=== PATIENT | female | born 1965 | race Caucasian/White ===

== ENCOUNTER → 2016-06-19 | Outpatient (CLI) | payer BC ==
[~2016-06-19] MED LIST: ACET-1311 PO; ATV/1 PO; CALC1TAB9 PO; CYAN10005 PO; DIPH-437 PO; IBUP-1050 PO; LISI-461 PO; METO25TA56 PO; NITR1CAP16 PO; OPTIRAY 320 IV PRN; OXYC-57 PO; PHEN-775 PO; VITAMIN B12 PO
--- NOTE | 2016-06-19 08:24 | DIAGNOSTIC IMAGING REPORT ---
CT ABD/PELVIS IV CONTRAST ONLY CLINICAL HISTORY: Bladder mass COMPARISON STUDY: 02/04/2014 TECHNIQUE: Following the IV administration of 92 mL of Optiray-320, CT scan of the abdomen and pelvis was performed from the lung bases to the proximal femurs. Images are reviewed in the axial, sagittal, and coronal planes. IV contrast was administered without complication. CT DOSE: 293.69 mGycm FINDINGS: Lower chest: The heart is normal in size and configuration, without pericardial effusion. The lung bases and pleural spaces are clear. Liver: There is a 4 mm hypodensity within the left hepatic lobe anteriorly, likely representing a cyst. Gallbladder: Unremarkable. Spleen: Enlarged measuring 14.5 cm Pancreas: Unremarkable. Adrenal glands: Unremarkable. Kidneys: There are bilateral nonobstructing intrarenal calculi. No solid renal masses are visualized Bowel: Evaluation of bowel is limited given the positive intra-abdominal fat and the lack of orally administered contrast. There are no transition zones indicate bowel obstruction. Peritoneum: There is free intraperitoneal air, slightly greater than expected for the last surgery which is performed 06/08/2016. There is a small amount of ascites, also possibly postsurgical Vasculature: The abdominal aorta is normal in course and caliber. Adenopathy: There are bilateral iliac/pelvic sidewall lymph nodes which are at the upper limits of normal in size. Pelvic viscera: There is mild bladder wall thickening. The uterus appears surgically absent. Skeletal structures: No destructive osseous lesions are seen. IMPRESSION: 1. Moderate free intraperitoneal air. This is more than is typical for surgery performed 06/08/2016. Clinical correlation is advocated 2. Splenomegaly 3. No evidence of bowel obstruction 4. Small amount of free pelvic fluid 5. Surgically absent uterus 6. Mild bladder wall thickening 7. Bilateral nephrolithiasis 8. Iliac and pelvic sidewall lymph nodes at the upper limits of normal in size Electronically signed by: Andrea Kerns M.D. 06/19/2016 8:22 AM
== END | disposition home or self-care (01) ==
LOC: C.CTS 07:40
PROVIDERS: ATTEND Urology
DX: N32.89 Other specified disorders of bladder (principal); N20.0 Calculus of kidney

== ENCOUNTER 2016-07-12 07:50 | Day surgery (SDC) | payer BC ==
[2016-06-27 15:39] VITALS: BMI 19.0
[~2016-07-12] VITALS: Ht 162.6 cm; Wt 52.7 kg
[~2016-07-12 07:50] MED LIST changes: +CIPROFLOXACIN / D5W 400 MG IV SCH; -CYAN10005 PO; -DIPH-437 PO; +LACTATED RINGER'S 1000ML 1,000 ML IV SCH; -NITR1CAP16 PO; -OPTIRAY 320 IV PRN; -OXYC-57 PO; -PHEN-775 PO
[2016-07-12 08:12] VITALS: BP 163/76; PULSE 93; TEMP 36.8; O2SAT 100; Ht 162.6 cm; Wt 52.7 kg
--- NOTE | 2016-07-12 08:33 | History & Physical Bridge Note ---
H&P Re-Evaluation Bridge Note: I have examined the patient, reviewed the History & Physical and in the interval since the performance of the History & Physical I have noted the following changes of clinical significance: No changes noted
[2016-07-12] MEDS ORDERED: FENTANYL CITRATE INJ 50 MCG/1 ML 2 ML VIAL ONE (09:01)
[2016-07-12] MEDS ORDERED: MIDAZOLAM HCL 1 MG/ML 2ML VIAL ONE (09:01)
[2016-07-12] MEDS ORDERED: LIDOCAINE HCL 2% 2 ML VIAL (20MG/ML) ONE (09:43)
[2016-07-12] MEDS ORDERED: ONDANSETRON INJ 2 MG/ML 2 ML VIAL ONE (09:43)
[2016-07-12] MEDS ORDERED: DEXAMETHASONE SOD INJ 4 MG/ML VIAL ONE (09:43)
[2016-07-12] MEDS ORDERED: PROPOFOL IV EMULSION 10 MG/ML 20 ML VIAL IV ONE (09:43)
[2016-07-12] MEDS ORDERED: FENTANYL CITRATE INJ 50 MCG/1 ML 2 ML VIAL IV PRN (09:45)
[2016-07-12] MEDS ORDERED: EpHEDrine SULFATE INJ 50 MG/ML AMP IV PRN (09:45)
[2016-07-12] MEDS ORDERED: ATROPINE SULFATE 0.1 MG/ML 5ML SYR IV PRN (09:45)
[2016-07-12] MEDS ORDERED: ONDANSETRON INJ 2 MG/ML 2 ML VIAL IV PRN (09:45)
[2016-07-12] MEDS ORDERED: OXYC-57 PO (10:04)
[2016-07-12] MEDS ORDERED: NITR1CAP16 PO (10:04)
[2016-07-12] MEDS ORDERED: PHEN-775 PO (10:04)
--- NOTE | 2016-07-12 10:06 | Discharge Instructions ---
Discharge Instructions Admission Reason for Admission: Bladder Tumor Discharge Discharge Diagnosis / Problem: Bladder tumor s/p TURBT Discharge Goals Goal(s): Improve disease control, Diagnostic testing, Therapeutic intervention Activity Recommendations Activity Limitations: per Instructions/Follow-up section Lifting Limitations: gradually increase as tolerated Exercise/Sports Limitations: rest today May Resume Sexual Activity: after one week Shower/Bathe: no limitations Driving or Machine Use: resume 1 day after discharge . Discharge Diet Recommended Diet: Regular Diet (good fluid intake) Procedures Procedures Performed: TURB WITH BIOPSY Pending Studies Studies pending at discharge: yes List of pending studies: Path report Medical Emergencies . Who to Call and When: Medical Emergencies: If at any time you feel your situation is an emergency, please call 911 immediately. . Non-Emergent Contact Non-Emergency issues call your: Urologist Call Non-Emergent contact if: you have a fever, temperature is above 101, your pain is not controlled, your pain is worsening, your pain is unusual for you, your pain is concerning you, you have any medication questions . . "Provider Documentation" section prepared by Feroz Turner. VTE Core Measure Inpt VTE Proph given/why not?: SCD's [place] Drug Monitoring Program Search Results: patient reviewed within database, see additional documentation (received postop Rx after previous surgery)
--- NOTE | 2016-07-12 10:08 | [facility] Post Operative Brief Note ---
Immediate Operative Summary Operative Date Jul 12, 2016. Pre-Operative Diagnosis Left sided bladder tumor Post-Operative Diagnosis Same as preoperative diagnosis Procedure(s) Performed TURBT WITH BIOPSY Surgeon Dr Feroz Turner Core Winder Surgeon(s) None Estimated Blood Loss 10 ml Findings Small, papillary bladder tumor resected in its entirety, well removed from UO Specimens A)LEFT BLADDER TUMOR B)BLADDER TUMOR BASE Drains NA Anesthesia [facility] Complication(s) None Disposition Recovery Room / PACU
[2016-07-12] MEDS ORDERED: OXYCODONE/ACETAMINOPHEN 5-325 TAB PO PRN (10:15)
[2016-07-12] MEDS ORDERED: PHENAZOPYRIDINE HCL 100 MG TAB PO PRN (10:15)
--- NOTE | 2016-07-12 10:30 | OPERATIVE REPORT ---
DATE OF OPERATION: 07/12/2016 PREOPERATIVE DIAGNOSIS: Left papillary bladder tumor, less than 2 cm in size. POSTOPERATIVE DIAGNOSIS: Same. PROCEDURE: Transurethral resection and biopsy of bladder tumor with fulguration. SURGEON: Dr. Feroz Turner. REMOTELY OPERATED VEHICLE: None. ANESTHESIA: General anesthesia with laryngeal mask. COMPLICATIONS: None. FINDINGS: No evidence of residual tumor on completion of case, well removed from ureteral orifice, low grade papillary appearance. SPECIMENS SENT TO PATHOLOGY: Left-sided bladder tumor and bladder tumor base (cold cup biopsy). DRAINS LEFT IN PLACE: None. ESTIMATED BLOOD LOSS: 15. COMPLICATIONS: None. BRIEF HISTORY OF PRESENT ILLNESS: Ms. 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 Please see H\T\P for further details. After discussion of risks and benefits and various forms of intervention, she is being brought in for initial TURBT to manage her disease. Seeing the low-grade appearance of her tumor, mitomycin C is not going to be instilled into the bladder today. Intravenous ciprofloxacin provided for antibiotic coverage and SCDs used for DVT prophylaxis. DESCRIPTION OF PROCEDURE: The patient was properly identified and brought into the operative suite. After identification of appropriate consent on the chart, general anesthesia with laryngeal mask was initiated. The patient was prepped and draped in standard fashion for this procedure. pattern chart writer-out procedure was followed. A 24-[place] rigid resectoscope was passed into the bladder using a visual obturator. The bladder was surveyed in its entirety demonstrating no intravesical calculi or scarring. Other than the tumor on her left side superior lateral to the ureteral orifice, no additional mucosal changes were noted. Using a bipolar loop, the area was able to be resected in one swipe. A small amount of circumferential papillary changes were noted at the bladder tumor base and these were able to be removed with a cold cup biopsy including the base of the tumor. After this was complete, no evidence of bladder perforation was appreciated. Coagulation was used for a generous completion of the area with excellent hemostasis. Ureteral orifice was well removed and uninvolved by the disease process. Bladder was surveyed and generously irrigated and noted to have no evidence of residual tumor or abnormalities within it. Bladder was drained and resectoscope was removed. The anesthesia was reversed. The patient was transferred to recovery room in stable condition. FOLLOWUP CARE: The patient will be discharged home with a prescription for nitrofurantoin, Percocet, and Pyridium. Postoperative appointment for pathology discussion is confirmed. The patient is instructed to contact our service should she note any fevers, chills, nausea, vomiting or other significant difficulties in the postoperative period. I attest to the content of the Intraoperative Record and any orders documented therein. Any exceptio ns are noted below.
[2016-07-12 10:50] VITALS: BP 146/84; PULSE 88; TEMP 37.1; O2SAT 98
--- NOTE | 2016-07-12 10:53 | Anesthesiology Progress Note ---
Anesthesia Post Op Note Date & Time Jul 12, 2016 at 10:53 Vital Signs Pain Intensity: 2 Vital Signs Past 12 Hours Date Time Temp Pulse Resp B/P Pulse Ox O2 Delivery O2 Flow Rate FiO2 07/12/16 10:44 84 12 07/12/16 10:44 84 12 96 07/12/16 10:43 131/78 07/12/16 10:39 83 16 96 07/12/16 10:39 83 16 07/12/16 10:38 133/78 07/12/16 10:34 81 10 96 07/12/16 10:34 80 10 07/12/16 10:33 140/80 07/12/16 10:29 94 16 07/12/16 10:29 94 16 98 07/12/16 10:28 36.8 92 17 07/12/16 10:28 91 17 143/85 96 07/12/16 10:23 86 13 134/79 97 07/12/16 10:23 88 13 07/12/16 10:18 80 11 07/12/16 10:18 81 11 126/79 100 07/12/16 10:13 83 8 07/12/16 10:13 83 8 132/84 100 07/12/16 10:10 Room Air 07/12/16 10:08 81 9 129/87 100 07/12/16 10:08 81 9 07/12/16 10:03 89 10 07/12/16 10:03 89 10 142/92 100 07/12/16 10:00 158/88 07/12/16 09:58 36.7 93 16 158/88 100 Mask 10 07/12/16 08:12 36.8 93 18 163/76 100 Room Air Notes Mental Status: alert / awake / arousable, participated in evaluation Pt Amnestic to Procedure: Yes Nausea / Vomiting: adequately controlled Pain: adequately controlled Airway Patency, RR, SpO2: stable & adequate BP & HR: stable & adequate Hydration State: stable & adequate Anesthetic Complications: no major complications apparent
[2016-07-12 11:25] VITALS: BP 130/70; PULSE 78; TEMP 36.4; O2SAT 98
== END 2016-07-12 12:03 | disposition home or self-care (01) ==
LOC: C.ACU 07:50
PROVIDERS: ATTEND Urology
DX: C67.9 Malignant neoplasm of bladder, unspecified (principal); R31.9 Hematuria, unspecified; C91.10 Chronic lymphocytic leukemia of B-cell type not having achieved remission; D25.9 Leiomyoma of uterus, unspecified; I10 Essential (primary) hypertension; I49.3 Ventricular premature depolarization; Z98.890 Other specified postprocedural states

== ENCOUNTER → 2016-07-30 | Outpatient (CLI) | payer BC ==
[~2016-07-30] MED LIST changes: -CIPROFLOXACIN / D5W 400 MG IV SCH; +CYAN10005 PO; +DIPH-437 PO; -LACTATED RINGER'S 1000ML 1,000 ML IV SCH; +OXYC-57 PO
== END | disposition home or self-care (01) ==
LOC: C.LABSPEC 16:08
PROVIDERS: ATTEND Obstetrics & Gynecology
DX: N89.8 Other specified noninflammatory disorders of vagina (principal)

== ENCOUNTER 2016-08-17 18:45 | Emergency (ER) | payer BC ==
[~2016-08-17] VITALS: Ht 162.6 cm; Wt 55.0 kg
[~2016-08-17 18:45] MED LIST changes: -CYAN10005 PO; -DIPH-437 PO
[2016-08-17 18:49] VITALS: TEMP 36.6; Ht 162.6 cm; Wt 55.0 kg
[2016-08-17] MEDS ORDERED: ONDANSETRON INJ 2 MG/ML 2 ML VIAL IV STA (18:58)
[2016-08-17] MEDS ORDERED: SODIUM CHLORIDE 0.9% 1000ML 1,000 ML IV STA ×2 (18:58)
[2016-08-17] MEDS ORDERED: MoRPHine SULFATE 4 MG/ML 1 ML CARP\\VIAL IV PRN (19:00)
--- NOTE | 2016-08-17 19:05 | EMERGENCY ROOM VISIT NOTE ---
History Report prepared by Bhargavi: Tigre Villagomez Under the Supervision of: Dr. Trevor uRff D.O. First contact with patient: 18:51 Chief Complaint: ABDOMINAL PAIN Stated Complaint: S/P SURGERY ON BLADDER, ABD PAIN Nursing Triage Summary: pt reports RLQ pain since 1430 today became worse as the day went , + nausea denies urinary sx History of Present Illness The patient is a 51 year old female who presents to the Emergency Room with complaints of worsening abdominal pain that started about 4 hours ago. The patient notes the discomfort is in her right lower abdomen and radiates to her back. She also complains of nausea. She denies blood in her urine, rectal bleeding, or vomiting. Source of History: patient Onset: 4 hours ago Position: abdomen Timing: worsening Associated Symptoms: + back pain (radiation to back ), + nausea, No urinary symptoms (denies blood in urine), No vomiting Note: Denies: rectal bleeding Review of Systems See HPI for pertinent positives & negatives. A total of 10 systems reviewed and were otherwise negative. Past Medical & Surgical Medical Problems: (1) Fibroid (2) Hypertension (3) resecton of bladder tumor Family History Patient reports no known family medical history. Social History Smoking Status: Never Smoker Drug Use: none Marital Status: Housing Status: lives with family Occupation Status: employed Current/Historical Medications Scheduled Acetaminophen (Tylenol), 650 MG PO PRN Acetaminophen/Diphenhydramine (Tylenol Pm), 1 TAB PO HS Calcium Citrate-Vitamin D (Citracal + D3 Maximum), 1 TAB PO QAM Cyanocobalamin (Vitamin B-12), 1,000 MCG PO DAILY Lisinopril (Lisinopril), 10 MG PO QPM Metoprolol Tartrate (Lopressor) (Lopressor), 25 MG PO prn Miscellaneous Medications Ibuprofen (Advil), 400-800 MG PO Allergies Coded Allergies: No Known Allergies (Unverified , 08/17/16) Physical Exam Vital Signs Date Time Temp Pulse Resp B/P Pulse Ox O2 Delivery O2 Flow Rate FiO2 08/17/16 22:30 67 20 133/78 97 08/17/16 21:49 71 20 131/83 98 Room Air 08/17/16 20:20 85 20 138/80 100 08/17/16 18:49 36.6 105 18 178/99 100 Room Air Physical Exam GENERAL: Patient is awake alert, very anxious and uncomfortable appearing. Appears to be in moderate pain. EYES: The conjunctivae are clear. The pupils are round and reactive. EARS, NOSE, MOUTH AND THROAT: The nose is without any evidence of any deformity. Mucous membranes are moist tongue is midline NECK: The neck is nontender and supple. RESPIRATORY: Normal respiratory effort is noted there is no evidence of wheezing rhonchi or rales CARDIOVASCULAR: Regular rate and rhythm noted there no murmurs rubs or gallops normal S1 normal S2 GASTROINTESTINAL: The abdomen is nondistended and soft. Reproducible pain in RLQ , no specific guarding or rigidity noted. BACK: No midline tenderness or or step-off noted range of motion in flexion extension as well as rotation no signs of muscle spasm noted MUSCULOSKELETAL/EXTREMITIES: There is no evidence of gross deformity full range of motion is noted in the hips and shoulders SKIN: There is no obvious evidence of any rash. There are no petechiae, pallor or cyanosis noted. NEUROLOGIC: Patient is awake alert and oriented x3 Medical Decision & Procedures ER Provider Diagnostic Interpretation: CT results as stated below per my review and radiologist interpretation. ABDOMEN AND PELVIS CT WITH IV CONTRAST CT DOSE: 248.22 mGy.cm HISTORY: Abdominal pain right sided pain TECHNIQUE: Multiaxial CT images of the abdomen and pelvis were performed following the use of intravenous contrast. COMPARISON STUDY: 06/19/2016. FINDINGS: moderate stable splenomegaly. Liver enhances uniformly. Multiple slightly edematous changes of small bowel combine with mild hyperemia. Normal appendix. Nonobstructive colonic pattern. Bilateral nephrocalcinosis with no evidence for an obstructing urinary tract calculus. IMPRESSION: 1. Moderate stable splenomegaly. 2. Findings consistent with a generalized enteritis primarily of the small bowel. 3. No evidence for obstruction or collection or abscess 4. Normal appendix. 5. Bilateral nephrocalcinosis unchanged from the prior study. Electronically signed by: Bill John M.D. 08/17/2016 7:53 PM Dictated Date/Time: 08/17/2016 7:48 PM Laboratory Results 08/17/16 19:05 Red Blood Count 4.29, Mean Corpuscular Volume 89.7, Mean Corpuscular Hemoglobin 30.3, Mean Corpuscular Hemoglobin Concent 33.8, Mean Platelet Volume 11.3, Neutrophils (%) (Auto) 3.7, Lymphocytes (%) (Auto) 93.7, Monocytes (%) (Auto) 1.9, Eosinophils (%) (Auto) 0.2, Basophils (%) (Auto) 0.3, Neutrophils # (Auto) 4.78, Lymphocytes # (Auto) 116.99, Monocytes # (Auto) 2.32, Eosinophils # (Auto ) 0.19, Basophils # (Auto) 0.39 08/17/16 19:05 Test 08/17/16 19:05 08/17/16 19:09 08/17/16 20:30 White Blood Count 124.88 K/uL (4.8-10.8) Red Blood Count 4.29 M/uL (4.2-5.4) Hemoglobin 13.0 g/dL (12.0-16.0) Hematocrit 38.5 % (37-47) Mean Corpuscular Volume 89.7 fL (80-100) Mean Corpuscular Hemoglobin 30.3 pg (25-34) Mean Corpuscular Hemoglobin Concent 33.8 g/dl (32-36) Platelet Count 137 K/uL (130-400) Mean Platelet Volume 11.3 fL (7.4-10.4) Neutrophils (%) (Auto) 3.7 % Lymphocytes (%) (Auto) 93.7 % Monocytes (%) (Auto) 1.9 % Eosinophils (%) (Auto) 0.2 % Basophils (%) (Auto) 0.3 % Neutrophils # (Auto) 4.78 K/uL (1.4-6.5) Lymphocytes # (Auto) 116.99 K/uL (1.2-3.4) Monocytes # (Auto) 2.32 K/uL (0.11-0.59) Eosinophils # (Auto) 0.19 K/uL (0-0.5) Basophils # (Auto) 0.39 K/uL (0-0.2) RDW Standard Deviation 47.0 fL (36.4-46.3) RDW Coefficient of Variation 14.3 % (11.5-14.5) Immature Granulocyte % (Auto) 0.2 % Immature Granulocyte # (Auto) 0.21 K/uL (0.00-0.02) Est Creatinine Clear Calc Drug Dose 74.6 ml/min Estimated GFR () 102.7 Estimated GFR (Non- 88.6 BUN/Creatinine Ratio 23.2 (10-20) Calcium Level 9.6 mg/dl (8.5-10.1) Total Bilirubin 0.3 mg/dl (0.2-1) Direct Bilirubin < 0.1 mg/dl (0-0.2) Aspartate Amino Transf (AST/SGOT) 38 U/L (15-37) Alanine Aminotransferase (ALT/SGPT) 43 U/L (12-78) Alkaline Phosphatase 51 U/L (45-117) Total Protein 7.0 gm/dl (6.4-8.2) Albumin 4.7 gm/dl (3.4-5.0) Lipase 212 U/L (73-393) Bedside Hemoglobin 13.3 g/dl (12.0-16.0) Bedside Hematocrit 39 % (37-47) Bedside Sodium 137 mEq/L (135-144) Bedside Potassium 3.8 mEq/L (3.3-5.0) Bedside Chloride 100 mEq/L (101-112) Bedside Total CO2 25 mEq/l (24-31) Anion Gap 17.0 mmol/L (16-25) Bedside Blood Urea Nitrogen 19 mg/dl (7-18) Bedside Creatinine 0.7 mg/dl (0.6-1.3) Bedside Glucose (other) 103 mg/dl (70-99) Bedside Ionized Calcium (John) 1.21 mmol/l (1.12-1.32) Urine Color YELLOW Urine Appearance CLEAR (CLEAR) Urine pH 5.5 (4.5-7.5) Urine Specific [place] > 1.045 (1.000-1.030) Urine Protein NEG (NEG) Urine Glucose (UA) NEG (NEG) Urine Ketones NEG (NEG) Urine Occult Blood NEG (NEG) Urine Nitrite NEG (NEG) Urine Bilirubin NEG (NEG) Urine Urobilinogen NEG (NEG) Urine Leukocyte Esterase NEG (NEG) Laboratory results per my review. Medications Administered Medications (Trade) Dose Ordered Sig/Charles Route Start Time Stop Time Status Last Admin Dose Admin Sodium Chloride 1,000 ml @ 999 mls/hr Q1H1M STAT IV 08/17/16 18:58 08/17/16 19:58 DC 08/17/16 19:13 999 MLS/HR Sodium Chloride (Nss 1000ml) 1,000 ml @ 250 mls/hr Q4H STAT IV 08/17/16 18:58 08/17/16 22:57 DC 08/17/16 18:58 250 MLS/HR Morphine Sulfate (MoRPHine SULFATE INJ) 4 mg Q15M PRN IV 08/17/16 19:00 08/17/16 23:05 DC 08/17/16 19:15 4 MG Ondansetron HCl (Zofran Inj) 4 mg NOW STAT IV 08/17/16 18:58 08/17/16 19:00 DC 08/17/16 19:13 4 MG Oxycodone HCl (Roxicodone Immediate Rel 5MG Home Pack) 1 homepack UD ONCE PO 08/17/16 22:00 08/17/16 22:01 DC 08/17/16 22:32 1 HOMEPACK Ondansetron HCl (ZOFRAN ODT 4MG Home Pack) 1 homepack UD ONCE PO 08/17/16 22:00 08/17/16 22:01 DC 08/17/16 22:32 1 HOMEPACK ED Course 1857: The patient was evaluated in room B2. A complete history and physical examination were performed. 1858: Ordered Zofran Inj 4 mg IV, NSS 1000 ml @ 250 mls/hr IV, NSS 1000 ml @ 999 mls/hr IV. 0: Ordered Morphine Sulfate 4 mg IV/pain. 9: At this time, I reevaluated the patient and she was feeling better. 6: At this time, I discussed the patient's case with Dr. Meek - Hematology [facility] and discussed follow-up with the patient. He agrees that the patient should return with worsening symptoms. 2156: Upon reevaluation, the patient is resting comfortably. I discussed the results and treatment plan with her. She verbalized agreement of the treatment plan. The patient was discharged home. Medical Decision Differential diagnosis: Etiologies such as appendicitis, diverticulitis, PUD, biliary pathology, UTI, pancreatitis, obstruction, mesenteric ischemia, aortic pathology, infections, inflammatory bowel disease, renal colic, as well as others were entertained. Nursing notes reviewed. The patient is a 51-year-old female who presented to the emergency department for an evaluation of lower abdominal pain. The patient had right lower quadrant abdominal pain. Her physical exam was not consistent with an acute surgical abdomen. The patient was treated with IV fluids IV pain medication and IV antiemetics. On subsequent reevaluation she was somewhat improved. I discussed the patient's laboratory and radiographic studies with her. The patient appeared to have an elevated white blood cell count which is consistent with her underlying hematologic disorder. The patient did not appear to have any acute surgical process on CT the abdomen and pelvis but had lots of fluid- filled small bowel loops which could be consistent with a nonspecific enteritis. She has not had diarrhea yet but I do feel this is likely to begin over the next 24-48 hours. I discussed follow-up with the patient. I also discussed her case with the covering manager agriculture. The patient was encouraged to rest and avoid any strenuous activity. She was also encouraged to continue all medications as prescribed. She was also encouraged to follow-up with her primary care physician this is possible but return to the emergency Department immediately if symptoms change worsen or the need arises. Consults Time Called: 2140 Consulting Physician: Dr. Meek - Hematology [facility] Returned Call: 2145 At this time, I discussed the patient's case with Dr. Meek and discussed follow-up with the patient. He agrees that the patient should return with worsening symptoms. Impression Primary Impression: RLQ abdominal pain Additional Impression: Dehydration Scribe Attestation The scribe's documentation has been prepared under my direction and personally reviewed by me in its entirety. I confirm that the note above accurately reflects all work, treatment, procedures, and medical decision making performed by me. Departure Information Dispostion Home / Self-Care Referrals Trevor Schroeder M.D. (PCP) Forms Call Back Authorization, HOME CARE DOCUMENTATION FORM, IMPORTANT VISIT INFORMATION Patient Instructions ED Abd Pain Unkn Cause Male, [facility] Additional Instructions Call your family as well as your primary manager agriculture to schedule a follow- up appointment. Rest and avoid any strenuous activity. Drink plenty clear liquids. Return to the emergency Department immediately if symptoms change worsen or the need arises. Problem Qualifiers
[2016-08-17] MEDS ORDERED: OPTIRAY 320 IV PRN (19:15)
[2016-08-17] MEDS ORDERED: CYAN10005 PO (19:23)
[2016-08-17] MEDS ORDERED: DIPH-437 PO (19:23)
[2016-08-17 19:26] LABS: ISTAT CREATININE 0.7 mg/dl (0.6-1.3); ISTAT HEMOGLOBIN 13.3 g/dl (12.0-16.0); ISTAT IONIZED CALCIUM 1.21 mmol/l (1.12-1.32)
[2016-08-17 19:35] LABS: ALT/SGPT 43 U/L (12-78); AST/SGOT 38 U/L (15-37); BLOOD UREA NITROGEN 18 mg/dl (7-18); BUN/CREATININE RATIO 23.2 (10-20); CALCIUM 9.6 mg/dl (8.5-10.1); CARBON DIOXIDE 27 mmol/L (21-32); CHLORIDE 103 mmol/L (98-107); CREATININE 0.78 mg/dl (0.60-1.20); GLUCOSE 94 mg/dl (70-99); POTASSIUM 5.3 mmol/L (3.5-5.1); SODIUM 138 mmol/L (136-145)
[2016-08-17 19:37] LABS: ALKALINE PHOSPHATASE 51 U/L (45-117)
--- NOTE | 2016-08-17 19:54 | DIAGNOSTIC IMAGING REPORT ---
ABDOMEN AND PELVIS CT WITH IV CONTRAST CT DOSE: 248.22 mGy.cm HISTORY: Abdominal pain right sided pain TECHNIQUE: Multiaxial CT images of the abdomen and pelvis were performed following the use of intravenous contrast. COMPARISON STUDY: 06/19/2016. FINDINGS: moderate stable splenomegaly. Liver enhances uniformly. Multiple slightly edematous changes of small bowel combine with mild hyperemia. Normal appendix. Nonobstructive colonic pattern. Bilateral nephrocalcinosis with no evidence for an obstructing urinary tract calculus. IMPRESSION: 1. Moderate stable splenomegaly. 2. Findings consistent with a generalized enteritis primarily of the small bowel. 3. No evidence for obstruction or collection or abscess 4. Normal appendix. 5. Bilateral nephrocalcinosis unchanged from the prior study. Electronically signed by: Bill John M.D. 08/17/2016 7:53 PM Dictated Date/Time: 08/17/2016 7:48 PM
[2016-08-17 20:04] LABS: HEMATOCRIT 38.5 % (37-47); MEAN CELL VOLUME 89.7 fL (80-100); MEAN CORPUSCULAR HEMOGLOBIN 30.3 pg (25-34); MEAN CORPUSCULAR HGB CONC 33.8 g/dl (32-36); MEAN PLATELET VOLUME 11.3 fL (7.4-10.4); PLATELET COUNT 137 K/uL (130-400); RED BLOOD COUNT 4.29 M/uL (4.2-5.4); WHITE BLOOD COUNT 124.88 K/uL (4.8-10.8)
[2016-08-17 20:51] LABS: URINE APPEARANCE CLEAR (CLEAR); URINE BILIRUBIN NEG (NEG); URINE COLOR YELLOW; URINE NITRITE NEG (NEG); URINE PH 5.5 (4.5-7.5); URINE SPECIFIC GRAVITY > 1.045 (1.000-1.030); UROBILINOGEN NEG (NEG)
[2016-08-17 21:18] LABS: MANUAL MICROSCOPIC REQUIRED? NO; REVIEW REQ? NO
[2016-08-17] MEDS ORDERED: ONDANSETRON HOME PACK 4MG OD TAB PO ONE (22:00)
[2016-08-17] MEDS ORDERED: OXYCODONE IR HOME PACK PO ONE (22:00)
[2016-08-17 22:30] VITALS: BP 133/78; PULSE 67; O2SAT 97
[2016-08-17 23:11] LABS: BASO % 0.3 %; BASO ABS # 0.39 K/uL (0-0.2); COMPLETE YES; EOS % 0.2 %; IG% 0.2 %; LYMPH % 93.7 %; LYMPH ABS # 116.99 K/uL (1.2-3.4); MONO % 1.9 %; NEUT % 3.7 %
== END 2016-08-17 22:48 | disposition home or self-care (01) ==
LOC: C.EDB 18:47
DX: E86.0 Dehydration (principal); R10.31 Right lower quadrant pain; I10 Essential (primary) hypertension; Z86.018 Personal history of other benign neoplasm; Z79.899 Other long term (current) drug therapy